=== PATIENT | male | born 1975 | race Caucasian/White ===

== ENCOUNTER 2017-01-29 08:16 | Outpatient (CLI) ==
[2014-10-30 08:49] VITALS: BMI 35.9
[2017-01-29 13:50] LABS: BASOPHILS # (AUTO) 0.1 K/uL (0-0.2); BASOPHILS % (AUTO) 0.6 % (0.0-3.0); EOSINOPHILS # (AUTO) 0.6 K/ul (0.0-0.7); EOSINOPHILS % (AUTO) 7.5 % (0.0-7.0); HEMATOCRIT 42.3 % (42.0-52.0); HEMOGLOBIN 13.8 g/dl (14.0-18.0); IMMATURE GRANULOCYTE % (AUTO) 0.1 % (0.0-5.0); LYMPHOCYTES # (AUTO) 1.9 K/uL (0.60-3.4); LYMPHOCYTES % (AUTO) 23.4 (10.0-50.0); MEAN CORPUSCULAR HEMOGLOBIN 32.6 pg (27.0-31.0); MEAN CORPUSCULAR HGB CONC 32.6 (31.8-35.4); MONOCYTES # (AUTO) 0.6 K/uL (0.4-2.0); MONOCYTES % (AUTO) 7.7 (0-10); NEUTROPHILS # (AUTO) 4.9 K/ul (2.0-6.9); NEUTROPHILS % (AUTO) 60.7; PLATELET COUNT 435 10^3/uL (140-440); RED BLOOD COUNT 4.23 10^6/ul (4.70-6.10); WHITE BLOOD COUNT 8.08 K/ul (4.2-10.2)
[2017-01-29 14:37] LABS: ALBUMIN 3.1 g/dL (3.4-5.0); ALBUMIN/GLOBULIN RATIO 0.7; ANION GAP 14.3; BILIRUBIN,TOTAL 0.32 mg/dL (0.00-1.20); BUN/CREATININE RATIO 9.63; CALCIUM 9.4 mg/dL (8.2-10.2); CHOL/HDL RATIO 4.2 (4.5-6.4); CREATININE 0.83 mg/dL (0.60-1.10); POTASSIUM 4.3 mmol/L (3.5-5.1); TOTAL PROTEIN 7.5 g/dL (6.4-8.2)
== END 2017-01-29 08:17 | disposition home or self-care (01) ==
LOC: LAB 08:16
PROVIDERS: ATTEND Nurse Practitioner Family
DX: E78.00 Pure hypercholesterolemia, unspecified (principal); Z00.00 Encounter for general adult medical examination without abnormal findings
CPT/HCPCS: 36415; 80053; 80061; 84443; 85025

== ENCOUNTER 2017-04-03 09:12 | Outpatient (CLI) ==
[2014-10-30 08:49] VITALS: BMI 35.9
--- NOTE | 2017-04-03 09:59 | US ---
Exam: Colbert-scale and color Doppler ultrasonographic evaluation of the scrotum and testicles. Comparison: None available. Reason for exam: Right testicular pain. FINDINGS: The right testicle measures approximately 3.96 x 1.93 x 3.06 cm with normal appearing ech otexture and normal vascular flow. No parenchymal lesions are seen within the right testicle. The right epididymis is unremarkable. The scrotal wall measures 0.24 cm which is within normal limits. There is a mild right sided varicocele. The left testicle measures approximately 3.16 x 2.33 x 3.06 cm with normal appearing echotexture and normal vascular flow. No parenchymal mass is seen within the left testicle. The left epididymis i s unremarkable. The left scrotal wall measures 0.23 cm which is within normal limits. Impression: 1. No evidence of testicular torsion in either testicle. 2. Mild right sided varicocele.
== END 2017-04-03 09:13 | disposition home or self-care (01) ==
LOC: RAD 09:12
PROVIDERS: ATTEND Nurse Practitioner Family
DX: N50.811 Right testicular pain (principal); N50.89 Other specified disorders of the male genital organs

== ENCOUNTER 2017-07-31 13:15 | Outpatient (CLI) ==
[2014-10-30 08:49] VITALS: BMI 35.9
[2017-07-31 13:32] LABS: BASOPHILS % (AUTO) 0.4 % (0.0-3.0); EOSINOPHILS # (AUTO) 0.4 K/ul (0.0-0.7); EOSINOPHILS % (AUTO) 5.2 % (0.0-7.0); HEMATOCRIT 41.5 % (42.0-52.0); IMMATURE GRANULOCYTE % (AUTO) 0.4 % (0.0-5.0); IMMATURE RETIC FRACTION 14.4; LYMPHOCYTES % (AUTO) 24.5 (10.0-50.0); MEAN CORPUSCULAR HEMOGLOBIN 33.3 pg (27.0-31.0); MEAN CORPUSCULAR HGB CONC 33.7 (31.8-35.4); MEAN CORPUSCULAR VOLUME 98.8 fl (80.0-94.0); MONOCYTES # (AUTO) 0.6 K/uL (0.4-2.0); MONOCYTES % (AUTO) 7.1 (0-10); NEUTROPHILS # (AUTO) 5.2 K/ul (2.0-6.9); NEUTROPHILS % (AUTO) 62.4; PLATELET COUNT 456 10^3/uL (140-440); WHITE BLOOD COUNT 8.28 K/ul (4.2-10.2)
[2017-07-31 14:26] LABS: ALBUMIN 3.1 g/dL (3.4-5.0); ALBUMIN/GLOBULIN RATIO 0.79; ANION GAP 13.8; BILIRUBIN,TOTAL 0.28 mg/dL (0.00-1.20); BUN/CREATININE RATIO 13.41; CALCIUM 9.3 mg/dL (8.2-10.2); CREATININE 0.82 mg/dL (0.60-1.10); FERRITIN 156.24 ng/mL (21.81-274.66); FOLATE 2.9 ng/mL (3.1-20.5); POTASSIUM 3.8 mmol/L (3.5-5.1)
[2017-08-02 13:13] LABS: FREE TESTOSTERONE 9.9 pg/mL (6.8-21.5)
== END 2017-07-31 13:16 | disposition home or self-care (01) ==
LOC: LAB 13:15
PROVIDERS: ATTEND Nurse Practitioner Family
DX: R53.83 Other fatigue (principal); R68.82 Decreased libido; F41.8 Other specified anxiety disorders; G25.81 Restless legs syndrome; M54.9 Dorsalgia, unspecified
CPT/HCPCS: 36415; 80053; 82306; 82607; 82728; 82746; 83540; 83550; 84402; 84466; 85025; 85045